=== PATIENT | male | born 1960 | race Caucasian/White ===

== ENCOUNTER → 2020-07-03 15:09 | Outpatient (BNVA) | payer OTHER, SELFPAY | PROVIDERS: PCP Internal Medicine; Referring Provider Internal Medicine; Visit Provider Urology | DX: N40.1 Benign prostatic hyperplasia with lower urinary tract symptoms (principal); R33.9 Retention of urine, unspecified | CPT/HCPCS: 99212; Q3014 ==

== ENCOUNTER 2023-01-04 11:06 | Outpatient (AMB) | payer OTHER, SELFPAY ==
--- NOTE | 2023-01-04 11:09 | A.OFFVIS_ITS ---
Intake Intake Visit Reasons: follow up-elevated PSA Intake Note: * Patient presents today for a follow-up on Elevated PSA * Meds- Tamsulosin * Allergies to Antibiotic- Sulfa * Blood Thinner- None * PVR- 14ml Instructional Developer Required: No Accompanied by: Self / Same As Patient Allergies sulfamethoxazole [From Bactrim] Allergy (Mild, Verified 01/04/23 11:19) Blister trimethoprim [From Bactrim] Allergy (Mild, Verified 01/04/23 11:19) Blister finasteride Allergy (Unknown, Verified 01/04/23 11:16) Unknown Medication List - Last Reconciled 01/04/23 by Keith Ordonez MD amoxicillin-pot clavulanate 875-125 mg 1 tab PO BID tamsulosin 0.4 mg PO BEDTIME HPI HPI Comments History of Present Illness Details Vick is a 62-year-old male who presents to the office as a new patient evaluation for elevated PSA. 01/04/23-- The patient states that he found to have UTI about 2 weeks ago and was started on Augmentin 875 mg BID. He states that he was told that he needed to be on antibiotics for 21 days but he only received 10 days worth of medication. He had a PSA done during the time he had a UTI episode. Complains back pain . The patient was started with tamsulosin 0.4 mg QD a week ago and states that his symptoms improved since he was started on the medication. His father had history of prostate cancer AUA symptom score: 22 based on previous symptoms Prostate exam: moderately enlarged Plan: I ordered 10 days of Augmentin 875 mg BID. Will follow-up for PSA blood work when his UTI subsides. CAT scan was ordered. Pt being treated for prostatitis Consider prostate biopsy pending repeat PSA and LUTS [facility] Medical History (Updated 01/07/23 @ 08:36 by Esthela Simpson) Weak urinary stream Incomplete emptying of bladder Frequency of micturition Benign prostatic hyperplasia with lower urinary tract symptoms Surgical History (Updated 01/04/23 @ 11:22 by FINA Kidd) Hx of elbow surgery History of shoulder surgery Family History (Updated 01/04/23 @ 11:21 by FINA Kidd) Father Colon cancer Prostate cancer Mother Asthma Diabetes mellitus Social History (Updated 01/04/23 @ 11:20 by FINA Kidd) Alcohol intake: current Alcohol intake frequency: a few times a week Patient Tobacco Use Status: Never used Tobacco Review of Systems Const All systems reviewed & are unremarkable except as noted in HPI and below Reports no additional complaints Eyes Reports no additional complaints ENT Denies neck pain Card Denies leg edema Resp Denies cough GI Denies constipation Musc Reports no additional complaints and Denies neck pain Skin/Breast Denies rash and Denies unusual bruising Neuro Reports no additional complaints Psych Reports no additional complaints Endo Reports no additional complaints Pablo/Lymph Reports no additional complaints Aller/Immun Reports no additional complaints Physical Exam Const General: healthy appearing, no acute distress and well developed Orientation/consciousness: patient oriented x3 HEENT Head: Yes normocephalic and Yes atraumatic Eyes Conjunctivae: conjunctivae normal Neck Neck: Yes normal visual inspection Chest Chest palpation & inspection: normal inspection of the chest Resp Effort & Inspection: normal respiratory effort Cardio Rate: regular rate GI Inspection: Yes normal to inspection Palpation (GI): Soft to palpation Other: Prostate Exam: moderately enlarged Skin General skin exam: no rashes or lesions noted Neuro General: patient oriented x3 Extrem General: No pedal edema Psych Appearance: grossly normal Affect: normal affect Office Procedures Post Void Residual Post Residual Void Post Void Residual (PVR): 14 [id number] Void Residual by ultrasound Results AMB Urinalysis, Automated UA Leukoctes 0 Bebeto/uL Last Edit by FINA Kidd on 01/04/23 11:28 UA Nitrite Negative Last Edit by FIAN Kidd on 01/04/23 11:28 UA Urobilinogen 0.2 mg/dL Last Edit by FINA Kidd on 01/04/23 11:2 8 UA Protein 0 mg/dL Last Edit by FINA Kidd on 01/04/23 11:28 UA pH 6.0 Last Edit by FINA Kidd on 01/04/23 11:28 UA Blood 10 Yovany/uL Last Edit by FINA Kidd on 01/04/23 11:28 UA Specific [place] 1.030 Last Edit by FINA Kidd on 01/04/23 11: 28 UA Ketone Negative Last Edit by FINA Kidd on 01/04/23 11:28 UA Bilirubin 0 mg/dL Last Edit by FINA Kidd on 01/04/23 11:28 UA Glucose 0 mg/dL Last Edit by FINA Kidd on 01/04/23 11:28 Results Reviewed Results Reviewed: Laboratory Last Values Urine pH (Auto) 6.0 01/04/23 11:26 Specific [place] (Auto) 1.030 01/04/23 11:26 Urine Protein (Auto) 0 mg/dL 01/04/23 11:26 Glucose (UA)(Auto) 0 mg/dL 01/04/23 11:26 Urine Ketones (Auto) Negative 01/04/23 11:26 Urine Blood (Auto) 10 Yovany/uL 01/04/23 11:26 Urine Nitrite (Auto) Negative 01/04/23 11:26 Urine Bilirubin (Auto) 0 mg/dL 01/04/23 11:26 Urine Urobilinogen (Auto) 0.2 mg/dL 01/04/23 11:26 Leukocyte Esterase (Auto) 0 Bebeto/uL 01/04/23 11:26 Assessment & Plan Assessment & Plan (1) Back pain: Code(s): M54.9 - Dorsalgia, unspecified (2) BPH (benign prostatic hyperplasia): Code(s): N40.0 - Benign prostatic hyperplasia without lower urinary tract symptoms (3) Elevated PSA: Code(s): R97.20 - Elevated prostate specific antigen [PSA] (4) UTI (urinary tract infection): Code(s): N39.0 - Urinary tract infection, site not specified (5) Enlarged prostate: Code(s): N40.0 - Benign prostatic hyperplasia without lower urinary tract symptoms Plan I ordered 10 days of Augmentin 875 mg BID. Will follow-up for PSA blood work when his UTI subsides. CAT scan was ordered. Pt being treated for prostatitis Consider prostate biopsy pending repeat PSA and LUTS Orders: Orders AMB Urinalysis Automated 01/04/23 Z13.9 - Encounter for screening, unspecified AMB Post Void Residual by ultrasound 01/04/23 N39.8 - Other specified disorders of urinary system CT abdomen pelvis wo/w IV con 01/04/23 R31.9 - Hematuria, unspecified, M54.9 - Dorsalgia, unspecified Medications: New amoxicillin-pot clavulanate 875-125 mg 1 tab PO BID 20 tabs 0RF Patient Instructions: The patient had an opportunity to ask questions regarding treatment plan. All questions were answered. Laboratory studies and physical exam results were discussed and reviewed in detail. No major barriers to understanding were identified. The patient expressed understanding and agreement with the above treatment plan. The patient is aware they should contact our office by phone for worsening of their current condition or the appearance of new symptoms. Compliance is encouraged with any medications and followup testing that is ordered. It is a privilege to be allowed the opportunity to participate in the urologic care of your patient. If you have any questions or concerns regarding treatment for the above conditions please do not hesitate to contact me. The office telephone contact is [phone]. This note is constructed in part using voice recognition software. While every effort has been made to ensure accuracy behavioral health therapist errors may have been included. Yours sincerely, Keith Ordonez MD Coding Level of Care Code New Pt Level 4 (17026) Diagnoses Back pain M54.9 BPH (benign prostatic hyperplasia) N40.0 Elevated PSA R97.20 UTI (urinary tract infection) N39.0 Enlarged prostate N40.0 CPT Codes Post Residual Void - PVR CPT Code: 16902-Dyvl Void Residual by ultrasound ([id number])
== END 2023-01-04 11:58 | disposition home or self-care (01) ==
PROVIDERS: PCP Family Medicine; Visit Provider Urology
DX: M54.9 Dorsalgia, unspecified (principal); N40.0 Benign prostatic hyperplasia without lower urinary tract symptoms; R97.20 Elevated prostate specific antigen [PSA]; N39.0 Urinary tract infection, site not specified
CPT/HCPCS: 99204

== ENCOUNTER → 2023-01-04 11:06 | Outpatient (BNVA) | payer OTHER, SELFPAY | PROVIDERS: PCP Family Medicine; Visit Provider Urology | DX: N40.0 Benign prostatic hyperplasia without lower urinary tract symptoms (principal); N39.0 Urinary tract infection, site not specified; R97.20 Elevated prostate specific antigen [PSA]; M54.9 Dorsalgia, unspecified | CPT/HCPCS: 51798; 99202 ==

== ENCOUNTER 2023-03-08 07:43 | Outpatient (REF) | payer OTHER, SELFPAY ==
--- NOTE | ~2023-03-08 | CT_ITS ---
EXAMINATION: CT ABDOMEN AND PELVIS WITHOUT AND WITH CONTRAST CLINICAL INFORMATION: Hematuria. COMPARISON: None available. TECHNIQUE: Multidetector volumetric imaging was performed of the abdomen and pelvis before and after the IV administration of 85 mL of Omnipaque 350 intravenous contrast. Sagittal and coronal reformatted images were obtained on the technologist's workstation. This CT examination was performed using dose optimization techniques as appropriate, variously including the following: *Automated exposure control *Adjustment of mA and/or kV according to patient size (this includes techniques or standardized protocols for targeted exams where dose is matched to indication/reason for exam; i.e. extremities or head) *Use of iterative reconstruction technique DLP: 1157 mGy-cm FINDINGS: LUNG BASES: The visualized lung bases are unremarkable. The right hemidiaphragm is elevated. LIVER, GALLBLADDER, AND BILIARY TREE: The liver is normal in size, shape, and attenuation. No focal hepatic lesion or biliary ductal dilatation is present. The very top of the right lobe of the liver is not included on this exam. The gallbladder is unremarkable with no evidence of radiopaque gallstones, gallbladder wall thickening, or obvious pericholecystic inflammatory changes. PANCREAS: Unremarkable. SPLEEN: Unremarkable. ADRENAL GLANDS: Unremarkable. KIDNEYS AND URETERS: The kidneys are normal in size, shape, and attenuation. No hydronephrosis, hydroureter, or calculi seen. No perinephric stranding. BLADDER: There is some mild irregular thickening of the posterior wall of the bladder (9:574). A tiny locule of fat or possibly air is present near the fundus of the bladder (9:519). No other bladder abnormality is seen. GASTROINTESTINAL TRACT: The small and large bowel are unremarkable. The appendix is unremarkable. ABDOMINAL WALL: Tiny bilateral inguinal hernias are seen containing only fat. A small periumbilical hernia is seen containing only fat. LYMPH NODES: No retroperitoneal lymphadenopathy. VASCULAR: Unremarkable. PELVIC VISCERA: Mild BPH with the prostate measuring 4.9 x 4.1 x 5.1 cm for a volume of about 54 mL. Seminal vesicles appear normal. OSSEOUS STRUCTURES: Mild degenerative changes are seen in the spine. No bony destructive lesions. CT/CT abdomen pelvis wo/w IV con IMPRESSION: 1. There is some mild irregular thickening of the posterior wall of the bladder. Given the history of hematuria, cystoscopy is recommended for further evaluation, if this has not already been performed. 2. Mild BPH. Fleischner guidelines were followed.
[2023-03-08] MEDS: iohexoL 350 MG/ML 100 ML INFUS..BTL 85 ML IV (11:11)
[2023-03-08 13:28] LABS: Creatinine POC 0.6 mg/dL (0.5-1.4); GFR POC > 60
== END 2023-03-08 07:44 | disposition home or self-care (01) ==
LOC: HO.CT 07:43
PROVIDERS: PCP Family Medicine; Visit Provider Urology
DX: R93.1 Abnormal findings on diagnostic imaging of heart and coronary circulation (principal); M54.9 Dorsalgia, unspecified
CPT/HCPCS: 74178; 82565; Q9967

== ENCOUNTER 2023-03-19 13:44 | Outpatient (AMB) | payer OTHER, SELFPAY ==
--- NOTE | 2023-03-19 13:47 | A.OFFVIS_ITS ---
Intake Intake Visit Reasons: 1m/PSA/CT Intake Note: Patient presents today for a follow-up on PSA & CT Scan Results, US completed on 03/08/2023: Meds- None Allergies to Antibiotic- Sulfa & Bactrim Blood Thinner- None PSA Results- 11.1 ng/mL, 02/01/2023 PVR- 48 mL Reeling Machine Setup Operator Required: No Accompanied by: Self / Same As Patient Allergies sulfamethoxazole [From Bactrim] Allergy (Mild, Verified 03/19/23 13:49) Blister trimethoprim [From Bactrim] Allergy (Mild, Verified 03/19/23 13:49) Blister finasteride Allergy (Unknown, Verified 03/19/23 13:49) Unknown HPI HPI Comments History of Present Illness Details Vick is a 62-year-old male who presents today to the office for a follow-up. 03/19/2023? He is followed today for FU UTI and elevated PSA. He has been taking Flomax 0.4 mg daily. He was last seen by me on 01/04/2023 for elevated PSA. Prescribed Augmentin 875 mg BID at that time.? CAT scan was ordered. The patient was advised to consider prostate biopsy pending repeat PSA. I reviewed the CT of the abdomen/pelvis results from 03/08/2023 revealed that there is some mild irregular thickening of the posterior wall of the bladder. Mild BPH noted. I reviewed the PSA results from 02/01/2023 revealed 11.1 ng/mL. Review of charts: Last visit: 01/04/23-- The patient states that he found to have UTI about 2 weeks ago and was started on Augmentin 875 mg BID.?? He states that he was told that he needed to be on antibiotics for 21 days but he only received 10 days worth of medication. He had a PSA done during the time he had a UTI episode.?? Complains back pain .? The patient was started with tamsulosin 0.4 mg QD a week ago and states that his symptoms improved since he was started on the medication.?? His father had history of prostate cancer AUA symptom score: 22 based on previous symptoms? Prostate exam: moderately enlarged Plan:?I ordered 10 days of Augmentin 875 mg BID.? Will follow-up for PSA blood work when his UTI subsides.? CAT scan was ordered.?Pt being treated for prostatitis Consider prostate biopsy pending repeat PSA. 03/19/2023: Evaluation today?UA?leukocyt es: negative; blood: negative; bladder scan PVR: 48 mL. 03/19/2023: Plan: Continue Flomax 0.4 mg daily. Transrectal ultrasound guided prostate biopsy and cystoscopy as outpatient. [facility] Medical History Weak urinary stream Incomplete emptying of bladder Frequency of micturition Benign prostatic hyperplasia with lower urinary tract symptoms Surgical History Hx of elbow surgery History of shoulder surgery Family History Father Colon cancer Prostate cancer Mother Asthma Diabetes mellitus Social History Alcohol intake: current Alcohol intake frequency: a few times a week Patient Tobacco Use Status: Never used Tobacco Review of Systems Const All systems reviewed & are unremarkable except as noted in HPI and below Reports no additional complaints Eyes Reports no additional complaints ENT Denies neck pain Card Denies leg edema Resp Denies cough GI Denies constipation Musc Reports no additional complaints and Denies neck pain Skin/Breast Denies rash and Denies unusual bruising Neuro Reports no additional complaints Psych Reports no additional complaints Endo Reports no additional complaints Pablo/Lymph Reports no additional complaints Aller/Immun Reports no additional complaints Physical Exam Const General: healthy appearing, no acute distress and well developed Orientation/consciousness: patient oriented x3 HEENT Head: Yes normocephalic and Yes atraumatic Eyes Conjunctivae: conjunctivae normal Neck Neck: Yes normal visual inspection Chest Chest palpation & inspection: normal inspection of the chest Resp Effort & Inspection: normal respiratory effort Cardio Rate: regular rate GI Inspection: Yes normal to inspection Skin General skin exam: no rashes or lesions noted Neuro General: patient oriented x3 Extrem General: No pedal edema Psych Appearance: grossly normal Affect: normal affect Results AMB Urinalysis, Automated UA Leukoctes 0 Bebeto/uL Last Edit by FINA Kidd on 03/19/23 14:06 UA Nitrite Negative Last Edit by Bhupinder Mcintosh Pineda on 03/19/23 14:06 UA Urobilinogen 0.2 mg/dL Last Edit by Bhupinder Mcintosh Pineda on 03/19/23 14:0 6 UA Protein 0 mg/dL Last Edit by Bhupinder Mcintosh Pineda on 03/19/23 14:06 UA pH 7.5 Last Edit by Bhupinder Mcintosh Pineda on 03/19/23 14:06 UA Blood 0 Yovany/uL Last Edit by Bhupinder Mcintosh Pineda on 03/19/23 14:06 UA Specific [employer] 1.015 Last Edit by Bhupinder Mcintosh Pineda on 03/19/23 14: 06 UA Ketone Negative Last Edit by Bhupinder Mcintosh Pineda on 03/19/23 14:06 UA Bilirubin 0 mg/dL Last Edit by Bhupinder Mcintosh Pineda on 03/19/23 14:06 UA Glucose 0 mg/dL Last Edit by Bhupinder Mcintosh Pineda on 03/19/23 14:06 Results Reviewed Results Reviewed: Laboratory Last Values Urine pH (Auto) 7.5 03/19/23 13:50 Specific [employer] (Auto) 1.015 03/19/23 13:50 Urine Protein (Auto) 0 mg/dL 03/19/23 13:50 Glucose (UA)(Auto) 0 mg/dL 03/19/23 13:50 Urine Ketones (Auto) Negative 03/19/23 13:50 Urine Blood (Auto) 0 Yovany/uL 03/19/23 13:50 Urine Nitrite (Auto) Negative 03/19/23 13:50 Urine Bilirubin (Auto) 0 mg/dL 03/19/23 13:50 Urine Urobilinogen (Auto) 0.2 mg/dL 03/19/23 13:50 Leukocyte Esterase (Auto) 0 Bebeto/uL 03/19/23 13:50 Date of Service: 09/11/23 EXAMINATION: CT ABDOMEN AND PELVIS WITHOUT AND WITH CONTRAST?? CLINICAL INFORMATION: Hematuria.?? COMPARISON: None available. FINDINGS: LUNG BASES: The visualized lung bases are unremarkable. The right hemidiaphragm is elevated. LIVER, GALLBLADDER, AND BILIARY TREE: The liver is normal in size, shape, and attenuation. No focal hepatic lesion or biliary ductal dilatation is present. The very top of the right lobe of the liver is not included on this exam. The gallbladder is unremarkable with no evidence of radiopaque gallstones, gallbladder wall thickening, or obvious pericholecystic inflammatory changes.?? PANCREAS: Unremarkable.?? SPLEEN: Unremarkable.?? ADRENAL GLANDS: Unremarkable.?? KIDNEYS AND URETERS: The kidneys are normal in size, shape, and attenuation. No hydronephrosis, hydroureter, or calculi seen. No perinephric stranding.?? BLADDER: There is some mild irregular thickening of the posterior wall of the bladder (9:574). A tiny locule of fat or possibly air is present near the fundus of the bladder (9:519). No other bladder abnormality is seen.?? GASTROINTESTINAL TRACT: The small and large bowel are unremarkable. The appendix is unremarkable.?? ABDOMINAL WALL: Tiny bilateral inguinal hernias are seen containing only fat. A small periumbilical hernia is seen containing only fat.?? LYMPH NODES: No retroperitoneal lymphadenopathy. VASCULAR: Unremarkable. PELVIC VISCERA: Mild BPH with the prostate measuring 4.9 x 4.1 x 5.1 cm for a volume of about 54 mL. Seminal vesicles appear normal.?? OSSEOUS STRUCTURES: Mild degenerative changes are seen in the spine. No bony destructive lesions.?? IMPRESSION: 1. There is some mild irregular thickening of the posterior wall of the bladder. Given the history of hematuria, cystoscopy is recommended for further evaluation, if this has not already been performed. 2. Mild BPH Assessment & Plan Assessment & Plan (1) Elevated PSA: Code(s): R97.20 - Elevated prostate specific antigen [PSA] (2) Bladder wall thickening: Code(s): N32.89 - Other specified disorders of bladder (3) BPH (benign prostatic hyperplasia): Code(s): N40.0 - Benign prostatic hyperplasia without lower urinary tract symptoms Plan Continue Flomax 0.4 mg daily. Transrectal ultrasound guided prostate biopsy and cystoscopy as outpatient. Orders: Orders AMB Urinalysis Automated 03/19/23 Z13.9 - Encounter for screening, unspecified AMB Post Void Residual by ultrasound 03/19/23 N39.8 - Other specified disorders of urinary system Medications: New ciprofloxacin HCl start 1 day prior to prostate biopsy 500 mg PO BID 10 tabs 0RF Patient Instructions: The patient had an opportunity to ask questions regarding treatment plan. All questions were answered. Imaging, Laboratory studies and physical exam results were discussed and reviewed in detail. No major barriers to understanding were identified. The patient expressed understanding and agreement with the above treatment plan.? ? ? The patient is aware they should contact our office by phone for worsening of their current condition or the appearance of new symptoms. Compliance is encouraged with any medications and followup testing that is ordered.? ? ? It is a privilege to be allowed the opportunity to participate in the urologic care of your patient. If you have any questions or concerns regarding treatment for the above conditions please do not hesitate to contact me. The office telephone contact is [phone].? ? ? This note is constructed in part using voice recognition software. While every effort has been made to ensure accuracy victorian literature professor errors may have been included.? ? ? Yours sincerely,? ? ? Keith Ordonez MD? ? Coding Level of Care Code Est Pt Level 4 (44377) Diagnoses Elevated PSA R97.20 Bladder wall thickening N32.89 BPH (benign prostatic hyperplasia) N40.0
== END 2023-03-19 14:20 | disposition home or self-care (01) ==
PROVIDERS: PCP Family Medicine; Visit Provider Urology
DX: R97.20 Elevated prostate specific antigen [PSA] (principal); N32.89 Other specified disorders of bladder; N40.0 Benign prostatic hyperplasia without lower urinary tract symptoms
CPT/HCPCS: 99214

== ENCOUNTER → 2023-03-19 13:44 | Outpatient (BNVA) | payer OTHER, SELFPAY | PROVIDERS: PCP Family Medicine; Visit Provider Urology | DX: R97.20 Elevated prostate specific antigen [PSA] (principal); N32.89 Other specified disorders of bladder; N40.0 Benign prostatic hyperplasia without lower urinary tract symptoms; Z79.899 Other long term (current) drug therapy | CPT/HCPCS: 81003; 99212 ==

== ENCOUNTER 2023-03-30 08:17 | Day surgery (SDC) | payer OTHER, SELFPAY ==
--- NOTE | 2023-03-29 09:37 | HO.ANESPROP2 ---
Documented by User: Donna Augustin NP 03/29/23 09:38 HPI - Anesthesia Eval Consult details Narrative: 62yo M for Prostate Needle Biopsy,with poss cysto bladder biopsy PMFSH Active Problems Active Problems: All Active Problems (Updated 01/07/23 @ 08:36 by Esthela Simpson) Enlarged prostate (Acute) UTI (urinary tract infection) (Acute) Elevated PSA (Acute) BPH (benign prostatic hyperplasia) (Acute) Back pain (Acute) Hematuria (Acute) Incomplete emptying of bladder (Acute) Benign prostatic hyperplasia with lower urinary tract symptoms (Acute) Past Medical History Medical History (Updated 03/30/23 @ 10:21 by Dania Pringle MD) Family history of colon cancer Weak urinary stream Incomplete emptying of bladder Frequency of micturition Benign prostatic hyperplasia with lower urinary tract symptoms Family History Family History Father Colon cancer Prostate cancer Mother Asthma Diabetes mellitus Surgical History Surgical History (Updated 03/30/23 @ 10:22 by Dania Pringle MD) History of colonoscopy History of esophagogastroduodenoscopy (EGD) Hx of elbow surgery History of shoulder surgery Social History Social History Alcohol intake: current Alcohol intake frequency: a few times a week Patient Tobacco Use Status: Never used Tobacco Are you DNR?: No Advance Directives: No Advance Directives Information Provided: Yes Nutrition Risks: No Nutritional Risk Meds Allergies Allergy/AdvReac Type Severity Reaction Status Date / Time finasteride Allergy Intermediate Unknown Verified 03/30/23 09:22 sulfamethoxazole Allergy Mild Blister Verified 03/30/23 09:22 [From Bactrim] trimethoprim [From Bactrim] Allergy Mild Blister Verified 03/30/23 09:22 Exam Exam Date and Time: March 29, [id number] Assessment and Plan Assessment Anesthesia Assessment: Chart Reviewed Documented by User: Dania Pringle MD 03/30/23 10:24 [facility] Active Problems Active Problems: All Active Problems (Updated 03/30/23 @ 10:00 by Dania Pringle MD) UTI (urinary tract infection) (Acute) Elevated PSA (Acute) Back pain (Acute) Hematuria (Acute) Incomplete emptying of bladder (Acute) Benign prostatic hyperplasia with lower urinary tract symptoms (Acute) GERD Dysphagia Past Medical History Medical History (Updated 03/30/23 @ 10:21 by Dania Pringle MD) Family history of colon cancer Weak urinary stream Incomplete emptying of bladder Frequency of micturition Benign prostatic hyperplasia with lower urinary tract symptoms Family History Family History Father Colon cancer Prostate cancer Mother Asthma Diabetes mellitus Family history of problems with anesthesia: No Surgical History Surgical History (Updated 03/30/23 @ 10:22 by Dania Pringle MD) History of colonoscopy History of esophagogastroduodenoscopy (EGD) Hx of elbow surgery History of shoulder surgery History of Problems with Anesthesia: No Social History Social History Alcohol intake: current Alcohol intake frequency: a few times a week Patient Tobacco Use Status: Never used Tobacco Are you DNR?: No Advance Directives: No Advance Directives Information Provided: Yes Nutrition Risks: No Nutritional Risk Meds Allergies Allergy/AdvReac Type Severity Reaction Status Date / Time finasteride Allergy Intermediate Unknown Verified 03/30/23 09:22 sulfamethoxazole Allergy Mild Blister Verified 03/30/23 09:22 [From Bactrim] trimethoprim [From Bactrim] Allergy Mild Blister Verified 03/30/23 09:22 Exam Height,Weight and Vital Signs: Height 5 ft 11 in Weight 106.594 kg Vital Signs Temp Pulse Resp BP Pulse Ox O2 Del Method 03/30/23 09:20 98.3 F 74 18 150/83 H 96 Room Air Airway Mallampati Class: II TM Dist: >3cm Neck ROM: Full Loose/Missing/Broken Teeth: No (Denies broken, loose, missing teeth) Heart: RRR Lungs: CTAB Assessment and Plan Assessment Anesthesia Assessment: Anesthesia Plan Discussed Final Anesthetic Review Family History of Problems with Anesthesia: No History of Problems with Anesthesia: No NPO: Yes ASA Class: II Final Preanesthetic Review: No Changes in Pt Med Stat, Meds/Allgs Chart Reviewed, Consent Obtained/Reviewed and Anes Risks/Benef Reviewed Patient Risk: Low Procedure Risk: Low Assessment/Block/Sedation in SS: Assess/Block/Sedation-SS Anesthetic Plan Anesthetic Plan: GA and MAC: Disposition: Standard PACU
[2023-03-30] VITALS (7 sets, daily range): BP systolic 117–150; BP diastolic 70–89; PULSE 53–74; RESP 14–18; TEMP 35.7–36.8; O2SAT 95–99; BMI 32.8
[2023-03-30] MEDS: Lactated Ringers 1,000 ML 100 ML IVCONT (09:02)
--- NOTE | 2023-03-30 10:16 | MHC.SHP ---
Pre-Procedural Eval Section A Date of Service: 03/30/23 The patient is an INPATIENT: No The History & Physical has been completed within 30 days and I have reviewed it.: Yes Section B Chief Complaint: Hematuria,elevated prostate Allergies: Allergies Allergy/AdvReac Type Severity Reaction Status Date / Time finasteride Allergy Intermediate Unknown Verified 03/30/23 09:22 sulfamethoxazole Allergy Mild Blister Verified 03/30/23 09:22 [From Bactrim] trimethoprim [From Bactrim] Allergy Mild Blister Verified 03/30/23 09:22 Plan Diagnosis/Plan: Unchanged I have reviewed the history and physical and performed a pertinent physical examination on my patient. No changes have occurred unless specified. Cystoscopy, possible bladder biopsy, transrectal ultrasound guided prostate biopsy Time Spent With Patient Time: Total time managing care of this patient today ____ minutes.
--- NOTE | 2023-03-30 11:55 | W.PM.OPN ---
Operative Note Operative Note Date of Service: 03/30/23 Narrative: PreOperative Diagnosis:? ? Elevated PSA, Bladder wall thickening Post Operative Diagnosis:??Elevated PSA, Bladder wall thickening Procedure:?1. Transrectal ultrasound guided biopsy of the prostate 12 core 2. Transrectal ultrasound measurement of prostate 3. Transrectal ultrasound guided pudendal nerve block 4. Cystoscopy Surgeon:?Dr Keith Ordonez Anesthesia:? General Procedure: Preoperative antibiotics confirmed. After informed consent was verified the patient was repositioned into lithotomy position, prepped and draped in the usual sterile fashion. Time-out was done per protocol. 2% lidocaine urojet was passed transurethrally into the bladder. A 22 fr cystoscope was placed transurethrally into the bladder. The bulbous urethra was within normal limits. The prostatic urethra noted an obstructive median lobe. The 30 and 70 degree lens were used. The right and left ureteral orifices were visualized. There were moderate trabeculations and cellule changes noted. There were no suspicious bladder lesions seen. The patient was repositioned on the procedure table in left lateral position. Iodine mixed with lubricant jelly 30 cc placed per rectum. Ultrasound probe was placed per rectum. The prostate was visualized. The prostate was measured width 4.68 cm, height 5.10 cm, length 5.95 cm with a volume of 74.4 mL. An ultrasound guided pudendal nerve block was performed using 10 cc of 1% lidocaine. A 12 core biopsy was performed from the left base, left mid, left apex and right base, mid, apex 2 biopsies from each section. The ultrasound probe was removed and digital palpation of the prostate for 1-2 minutes for hemostasis was performed. The patient tolerated the procedure well. Complications: None
== END 2023-03-30 12:49 | disposition home or self-care (01) ==
PROVIDERS: PCP Family Medicine; Visit Provider Urology
PROC: (CPT 55700; principal; 2023-03-30 10:20)
DX: C61 Malignant neoplasm of prostate (principal); R97.20 Elevated prostate specific antigen [PSA]; R31.9 Hematuria, unspecified; N32.89 Other specified disorders of bladder; N41.9 Inflammatory disease of prostate, unspecified; N40.1 Benign prostatic hyperplasia with lower urinary tract symptoms; R39.14 Feeling of incomplete bladder emptying; R39.12 Poor urinary stream; R35.0 Frequency of micturition
CPT/HCPCS: 55700; 52000; 76942; 88305; 88344; J1956; J2250; J3010

== ENCOUNTER → 2023-03-30 08:17 | Outpatient (BNV) | payer OTHER, SELFPAY | PROVIDERS: PCP Family Medicine; Visit Provider Urology | DX: N32.89 Other specified disorders of bladder (principal); R97.20 Elevated prostate specific antigen [PSA] | CPT/HCPCS: 52000; 55700; 76942 ==

== ENCOUNTER 2023-04-15 13:20 | Outpatient (AMB) | payer OTHER, SELFPAY ==
--- NOTE | 2023-04-15 13:24 | MHC.OFFVIS ---
Intake Intake Visit Reasons: Bladder bx, prostate bx results Intake Note: Patient is Present for Follow Up Bladder Biopsy Urology Medication: Tamsulosin Antibiotic Allergies:Sulfa, trimethroprim Blood Thinners:None PVR: 0ml Allergies finasteride Allergy (Intermediate, Verified 04/15/23 13:35) Unknown sulfamethoxazole [From Bactrim] Allergy (Mild, Verified 04/15/23 13:35) Blister trimethoprim [From Bactrim] Allergy (Mild, Verified 04/15/23 13:35) Blister HPI HPI Comments History of Present Illness Details Vick is a 62-year-old male who presents today to the office for a follow-up. 04/15/23?S/P Transrectal ultrasound guided prostate biopsy and cystoscopy as outpatient on 03/30/23. The patient was initially evaluated on 01/04/23 for UTI and elevated PSA. He completed a 21 day course of Augmentin. The patient was started with tamsulosin 0.4 mg QD. His father had history of prostate cancer. Repeat PSA was still elevated. 02/01/23--11.1 Discussed prostate bx results: chronic inflammation and adenocarcinoma. Left apex lateral: Focal atypical glands, suspicious for adenocarcinoma. Right base lateral: Prostatic adenocarcinoma, [place] score 7 (3+4), grade group 2, 15% pattern 4, 2 mm, 13 % of core. Right base medial: Prostatic adenocarcinoma, Tae score 7 (3+4), grade group 2, 10% pattern 4, 1 mm, 8 % of core, and high grade prostatic intraepithelial neoplasia. OV: 01/04/23-- The patient states that he found to have UTI about 2 weeks ago and was started on Augmentin 875 mg BID.?? He states that he was told that he needed to be on antibiotics for 21 days but he only received 10 days worth of medication. He had a PSA done during the time he had a UTI episode.?Complains back pain .? The patient was started with tamsulosin 0.4 mg QD a week ago and states that his symptoms improved since he was started on the medication.??His father had history of prostate cancer. AUA symptom score: 22 based on previous symptoms? 01/04/23--Prostate exam: moderately enlarged. Plan:?Augmentin 875 mg BID.?Will follow-up for PSA blood work when his UTI subsides.?CAT scan was ordered.?Pt being treated for prostatitis. Consider prostate biopsy pending repeat PSA. Imaging/Results: CT of the abdomen/pelvis results from 03/08/2023 revealed that there is some mild irregular thickening of the posterior wall of the bladder. Mild BPH noted. PSA results from 02/01/2023 revealed 11.1 ng/mL. 04/15/23: Plan: Prostate cancer grade group 2, tae 3 + 4 Continue tamsulosin. MR prostate. [facility] Medical History Family history of colon cancer Weak urinary stream Incomplete emptying of bladder Frequency of micturition Benign prostatic hyperplasia with lower urinary tract symptoms Surgical History History of colonoscopy History of esophagogastroduodenoscopy (EGD) Hx of elbow surgery History of shoulder surgery Family History Father Colon cancer Prostate cancer Mother Asthma Diabetes mellitus Social History Alcohol intake: current Alcohol intake frequency: a few times a week Patient Tobacco Use Status: Never used Tobacco Review of Systems Const All systems reviewed & are unremarkable except as noted in HPI and below Reports no additional complaints Eyes Reports no additional complaints ENT Denies neck pain Card Denies leg edema Resp Denies cough GI Denies constipation Musc Reports no additional complaints and Denies neck pain Skin/Breast Denies rash and Denies unusual bruising Neuro Reports no additional complaints Psych Reports no additional complaints Endo Reports no additional complaints Pablo/Lymph Reports no additional complaints Aller/Immun Reports no additional complaints Office Procedures Post Void Residual Post Residual Void Post Void Residual (PVR): 0 62033-Yyve Void Residual by ultrasound Results AMB Urinalysis, Automated UA Leukoctes 0 Bebeto/uL Last Edit by FINA Montes De Oca on 04/15/23 13:36 UA Nitrite Negative Last Edit by FINA Montes De Oca on 04/15/23 13:36 UA Urobilinogen 1 mg/dL Last Edit by FINA Montes De Oca on 04/15/23 13:36 UA Protein 0 mg/dL Last Edit by FINA Montes De Oca on 04/15/23 13:36 UA pH 6.0 Last Edit by Ene Valero, RMA on 04/15/23 13:36 UA Blood 0 Yovany/uL Last Edit by Ene Valero, RMA on 04/15/23 13:36 UA Specific [place] 1.025 Last Edit by Ene Valero, RMA on 04/15/23 13:36 UA Ketone Negative Last Edit by Ene Valero, RMA on 04/15/23 13:36 UA Bilirubin 0 mg/dL Last Edit by Ene Valero, RMA on 04/15/23 13:36 UA Glucose 0 mg/dL Last Edit by Ene Valero, A on 04/15/23 13:36 Results Reviewed Results Reviewed: Laboratory Last Values Urine pH (Auto) 6.0 04/15/23 13:31 Specific [place] (Auto) 1.025 04/15/23 13:31 Urine Protein (Auto) 0 mg/dL 04/15/23 13:31 Glucose (UA)(Auto) 0 mg/dL 04/15/23 13:31 Urine Ketones (Auto) Negative 04/15/23 13:31 Urine Blood (Auto) 0 Yovany/uL 04/15/23 13:31 Urine Nitrite (Auto) Negative 04/15/23 13:31 Urine Bilirubin (Auto) 0 mg/dL 04/15/23 13:31 Urine Urobilinogen (Auto) 1 mg/dL 04/15/23 13:31 Leukocyte Esterase (Auto) 0 Bebeto/uL 04/15/23 13:31 Collected: 03/30/23 Surgical Pathology Diagnosis Prostate, needle core biopsies: A. Left base lateral: Benign prostatic tissue with abundant inflammation. B. Left base medial: Benign prostatic tissue with abundant inflammation. C. Left mid lateral: Benign prostatic tissue with abundant inflammation. D. Left mid medial: Few atypical glands. E. Left apex lateral: Focal atypical glands, suspicious for adenocarcinoma. F. Left apex medial: Benign prostatic tissue with abundant inflammation. G. Right base lateral: Prostatic adenocarcinoma, Tae score 7 (3+4), grade group 2, 15% pattern 4, 2 mm, 13 % of core. H. Right base medial: Prostatic adenocarcinoma, [place] score 7 (3+4), grade group 2, 10% pattern 4, 1 mm, 8 % of core, and high grade prostatic intraepithelial neoplasia. I. Right mid lateral: Benign prostatic tissue with abundant inflammation. J. Right mid medial: Benign prostatic tissue with abundant inflammation. K. Right apex lateral: Benign prostatic tissue with abundant inflammation. L. Right apex medial: Benign prostatic tissue with abundant inflammation. Comment: (D, E, G and H): Multiplex PIN4 stain pending; report to follow. Data synopsis - Prostate needle biopsy Histologic type: Adenocarcinoma, acinar type Histologic grade: Tae score: 7 (3+4) (right base, lateral and medial) % of pattern 4: 13% % of pattern 5: 0 Assessment & Plan Assessment & Plan (1) Elevated PSA: Code(s): R97.20 - Elevated prostate specific antigen [PSA] (2) BPH (benign prostatic hyperplasia): Code(s): N40.0 - Benign prostatic hyperplasia without lower urinary tract symptoms (3) Adenocarcinoma of prostate: Code(s): C61 - Malignant neoplasm of prostate Plan Prostate cancer grade group 2, tae 3 + 4 Continue tamsulosin. MR prostate. Orders: Orders AMB Urinalysis Automated 04/15/23 Z13.9 - Encounter for screening, unspecified AMB Post Void Residual by ultrasound 04/15/23 N32.89 - Other specified disorders of bladder Patient Instructions: The patient had an opportunity to ask questions regarding treatment plan. All questions were answered. Imaging, Laboratory studies and physical exam results were discussed and reviewed in detail. No major barriers to understanding were identified. The patient expressed understanding and agreement with the above treatment plan.? ? ? The patient is aware they should contact our office by phone for worsening of their current condition or the appearance of new symptoms. Compliance is encouraged with any medications and followup testing that is ordered.? ? ? It is a privilege to be allowed the opportunity to participate in the urologic care of your patient. If you have any questions or concerns regarding treatment for the above conditions please do not hesitate to contact me. The office telephone contact is [phone].? ? ? This note is constructed in part using voice recognition software. While every effort has been made to ensure accuracy learning and development assistant errors may have been included.? ? ? Yours sincerely,? ? ? Keith Ordonez MD? ? Coding Level of Care Code Est Pt Level 4 (08049) Diagnoses Elevated PSA R97.20 BPH (benign prostatic hyperplasia) N40.0 Adenocarcinoma of prostate C61 CPT Codes Post Residual Void - PVR CPT Code: 46426-Puwn Void Residual by ultrasound ([id number])
== END 2023-04-15 14:32 | disposition home or self-care (01) ==
PROVIDERS: PCP Family Medicine; Visit Provider Urology
DX: R97.20 Elevated prostate specific antigen [PSA] (principal); N40.0 Benign prostatic hyperplasia without lower urinary tract symptoms; C61 Malignant neoplasm of prostate
CPT/HCPCS: 99214

== ENCOUNTER → 2023-04-15 13:20 | Outpatient (BNVA) | payer OTHER, SELFPAY | PROVIDERS: PCP Family Medicine; Visit Provider Urology | DX: R97.20 Elevated prostate specific antigen [PSA] (principal); N40.0 Benign prostatic hyperplasia without lower urinary tract symptoms; C61 Malignant neoplasm of prostate | CPT/HCPCS: 51798; 81003; 99212 ==

== ENCOUNTER 2023-06-25 11:21 | Outpatient (AMB) | payer OTHER, SELFPAY ==
--- NOTE | 2023-06-25 12:02 | A.OFFVIS_ITS ---
Intake Intake Visit Reasons: 10w/MRI Intake Note: Patient is Present for Follow Up, MRI has not been scheduled yet: Urology Medication: Tamsulosin Antibiotic Allergies:Sulfa, trimethroprim Blood Thinners:None Presser Cotton Ginning Required: No Accompanied by: Self / Same As Patient Allergies finasteride Allergy (Intermediate, Verified 06/25/23 12:02) Unknown sulfamethoxazole [From Bactrim] Allergy (Mild, Verified 06/25/23 12:02) Blister trimethoprim [From Bactrim] Allergy (Mild, Verified 06/25/23 12:02) Blister HPI HPI Comments History of Present Illness Details Vick is a 62-year-old male who presents today to the office for a follow-up. LV--04/15/23 06/25/23--Here for FU ?S/P Transrectal ultrasound guided prostate biopsy and cystoscopy as outpatient on 03/30/23. The patient was initially evaluated on 01/04/23 for UTI and elevated PSA. He completed a 21 day course of Augmentin. The patient was started with tamsulosin 0.4 mg QD. His father had history of prostate cancer. Repeat PSA was still elevated. 02/01/23--11.1 Review of chart: Prostate bx results: chronic inflammation and adenocarcinoma. Left apex lateral: Focal atypical glands, suspicious for adenocarcinoma. Right base lateral: Prostatic adenocarcinoma, Tae score 7 (3+4), grade group 2, 15% pattern 4, 2 mm, 13 % of core. Right base medial: Prostatic adenocarcinoma, Tae score 7 (3+4), grade group 2, 10% pattern 4, 1 mm, 8 % of core, and high grade prostatic intraepithelial neoplasia. OV-01/04/23-- The patient states that he found to have UTI about 2 weeks ago and was started on Augmentin 875 mg BID.?? He states that he was told that he needed to be on antibiotics for 21 days but he only received 10 days worth of medication. He had a PSA done during the time he had a UTI episode.?Complains back pain .? The patient was started with tamsulosin 0.4 mg QD a week ago and states that his symptoms improved since he was started on the medication.??His father had history of prostate cancer. AUA symptom score: 22 based on previous symptoms? OV-01/04/23--Prostate exam: moderately enlarged. Augmentin 875 mg BID.?CAT scan was ordered.?Pt being treated for prostatitis. Consider prostate biopsy pending repeat PSA. Imaging/Results: CT of the abdomen/pelvis results from 03/08/2023 revealed that there is some mild irregular thickening of the posterior wall of the bladder. Mild BPH noted. PSA results from 02/01/2023 revealed 11.1 ng/mL. 06/25/23: Plan: Prostate cancer grade group 2, tae 3 + 4 Continue tamsulosin. PSA MR prostate authorization pending send prostate bx for polaris testing. Refer to Dr. Salter for RA Rad-prostatectomy, [facility] Medical History Family history of colon cancer Weak urinary stream Incomplete emptying of bladder Frequency of micturition Benign prostatic hyperplasia with lower urinary tract symptoms Surgical History History of colonoscopy History of esophagogastroduodenoscopy (EGD) Hx of elbow surgery History of shoulder surgery Family History Father Colon cancer Prostate cancer Mother Asthma Diabetes mellitus Social History Alcohol intake: current Alcohol intake frequency: a few times a week Patient Tobacco Use Status: Never used Tobacco Review of Systems Const All systems reviewed & are unremarkable except as noted in HPI and below Reports no additional complaints Eyes Reports no additional complaints ENT Denies neck pain Card Denies leg edema Resp Denies cough GI Denies constipation Musc Reports no additional complaints and Denies neck pain Skin/Breast Denies rash and Denies unusual bruising Neuro Reports no additional complaints Psych Reports no additional complaints Endo Reports no additional complaints Pablo/Lymph Reports no additional complaints Aller/Immun Reports no additional complaints Results AMB Urinalysis, Automated UA Leukoctes 0 Bebeto/uL Last Edit by Bhupinder Mcintosh, A on 06/25/23 12:13 UA Nitrite Negative Last Edit by Bhupinder Mcintosh, A on 06/25/23 12:13 UA Urobilinogen 1 mg/dL Last Edit by Bhupinder Mcintosh, A on 06/25/23 12:13 UA Protein 15 mg/dL Last Edit by Bhupinder Mcintosh, A on 06/25/23 12:13 UA pH 6.5 Last Edit by Bhupinder Mcintosh, A on 06/25/23 12:13 UA Blood 0 Yovany/uL Last Edit by Bhupinder Mcintosh, [facility] on 06/25/23 12:13 UA Specific [place] 1.020 Last Edit by Bhupinder Mcintosh, A on 06/25/23 12: 13 UA Ketone Negative Last Edit by Bhupinder Mcintosh, [facility] on 06/25/23 12:13 UA Bilirubin 0 mg/dL Last Edit by Bhupinder Mcintosh, [facility] on 06/25/23 12:13 UA Glucose 0 mg/dL Last Edit by Bhupinder Mcintosh, [facility] on 06/25/23 12:13 AMB Urinalysis, Automated UA Leukoctes 0 Bebeto/uL Last Edit by Bhupinder Mcintosh, [facility] on 06/25/23 12:17 UA Nitrite Negative Last Edit by Bhupinder Mcintosh, [facility] on 06/25/23 12:17 UA Urobilinogen 0.2 mg/dL Last Edit by Bhupinder Mcintosh, [facility] on 06/25/23 12:1 7 UA Protein 0 mg/dL Last Edit by Bhupinder Mcintosh, [facility] on 06/25/23 12:17 UA pH 6.0 Last Edit by Bhupinder Mcintosh, [facility] on 06/25/23 12:17 UA Blood 0 Yovany/uL Last Edit by Bhupinder Mcintosh, [facility] on 06/25/23 12:17 UA Specific [place] 1.010 Last Edit by Bhupinder Mcintosh, [facility] on 06/25/23 12: 17 UA Ketone Negative Last Edit by FINA Kidd on 06/25/23 12:17 UA Bilirubin 0 mg/dL Last Edit by FINA Kidd on 06/25/23 12:17 UA Glucose 0 mg/dL Last Edit by FINA Kidd on 06/25/23 12:17 Results Reviewed Results Reviewed: Laboratory Last Values Urine pH (Auto) 6.0 06/25/23 12:08 Urine pH (Auto) 6.5 06/25/23 12:08 Specific [place] (Auto) 1.010 06/25/23 12:08 Specific [place] (Auto) 1.020 06/25/23 12:08 Urine Protein (Auto) 0 mg/dL 06/25/23 12:08 Urine Protein (Auto) 15 mg/dL 06/25/23 12:08 Glucose (UA)(Auto) 0 mg/dL 06/25/23 12:08 Glucose (UA)(Auto) 0 mg/dL 06/25/23 12:08 Urine Ketones (Auto) Negative 06/25/23 12:08 Urine Ketones (Auto) Negative 06/25/23 12:08 Urine Blood (Auto) 0 Yovany/uL 06/25/23 12:08 Urine Blood (Auto) 0 Yovany/uL 06/25/23 12:08 Urine Nitrite (Auto) Negative 06/25/23 12:08 Urine Nitrite (Auto) Negative 06/25/23 12:08 Urine Bilirubin (Auto) 0 mg/dL 06/25/23 12:08 Urine Bilirubin (Auto) 0 mg/dL 06/25/23 12:08 Urine Urobilinogen (Auto) 0.2 mg/dL 06/25/23 12:08 Urine Urobilinogen (Auto) 1 mg/dL 06/25/23 12:08 Leukocyte Esterase (Auto) 0 Bebeto/uL 06/25/23 12:08 Leukocyte Esterase (Auto) 0 Bebeto/uL 06/25/23 12:08 Assessment & Plan Assessment & Plan (1) Elevated PSA: Code(s): R97.20 - Elevated prostate specific antigen [PSA] (2) BPH (benign prostatic hyperplasia): Code(s): N40.0 - Benign prostatic hyperplasia without lower urinary tract symptoms (3) Adenocarcinoma of prostate: Code(s): C61 - Malignant neoplasm of prostate Plan Prostate cancer grade group 2, tae 3 + 4 Continue tamsulosin. PSA MR prostate authorization pending send prostate bx for polaris testing. Refer to Dr. Salter for RA Rad-prostatectomy, Orders: Orders AMB Urinalysis Automated Today Z13.9 - Encounter for screening, unspecified AMB Urinalysis Automated Today Z13.9 - Encounter for screening, unspecified PSA,Total (Free>4and<10) Today C61 - Malignant neoplasm of prostate, R97.20 - Elevated prostate specific antigen [PSA] Referrals Urology Referral C61 - Malignant neoplasm of prostate, R97.20 - Elevated p rostate specific antigen [PSA] Coding Level of Care Code Est Pt Level 4 (05189) Diagnoses Elevated PSA R97.20 BPH (benign prostatic hyperplasia) N40.0 Adenocarcinoma of prostate C61
== END 2023-06-25 12:56 | disposition home or self-care (01) ==
PROVIDERS: PCP Family Medicine; Referring Provider Family Medicine; Visit Provider Urology
DX: R97.20 Elevated prostate specific antigen [PSA] (principal); N40.0 Benign prostatic hyperplasia without lower urinary tract symptoms; C61 Malignant neoplasm of prostate; Z13.9 Encounter for screening, unspecified
CPT/HCPCS: 99214

== ENCOUNTER → 2023-06-25 11:21 | Outpatient (BNVA) | payer OTHER, SELFPAY | PROVIDERS: PCP Family Medicine; Visit Provider Urology | DX: R97.20 Elevated prostate specific antigen [PSA] (principal); N40.0 Benign prostatic hyperplasia without lower urinary tract symptoms; C61 Malignant neoplasm of prostate; Z79.899 Other long term (current) drug therapy | CPT/HCPCS: 81003; 99212 ==